=== PATIENT | female | born 1985 | race Caucasian/White ===

== ENCOUNTER → 2019-01-11 09:33 | Outpatient (CLI) | payer BC ==
[2012-05-15 06:20] VITALS: BMI 18.7
--- NOTE | 2019-01-12 13:05 | EC ---
PATIENT:KURT UNGER DATE OF SERVICE: 01/11/19 SEX: F MEDICAL RECORD: [id number] DATE OF : [birth year] [facility] AGE OF PATIENT: 33 ADMISSION DATE: 01/11/19 REFERRING PHYSICIAN: INTERPRETING PHYSICIAN: PEDRO LUIS OMALLEY MD ECHOCARDIOGRAM REPORT ECHO CHARGES 4 ECHO COMPLETE Date: 01/11/19 CLINICAL DIAGNOSIS: MVP/PAC'S/PVC'S/PALPITATIONS ECHOCARDIOGRAPHIC MEASUREMENTS (adult normal given) AC root (d.<3.7cm) 2.5 cm LV Septum d (<1.2 cm> 0.6 cm Valve Excursion 1.4 cm LV Septum (systole) 1.3 cm Left Atria (s.<4.0cm> 2.1 cm LVPW d(<1.2cm) 0.7 cm RV (d.<2.3cm) 2.1 cm LVPW (sytole) 1.2 cm LV diastole(<5.6CM) 4.0 cm MV E-F(>70mm/sec) cm LV systole 2.1 cm LVOT Diameter 1.7 cm MV exc.(>10mm) cm Est.ejection fraction (50-75%) % DOPPLER: LVIT cm/sec A 32.0 cm/sec E 87.0 cm/sec LA cm/sec RVSP 28.0 mmHg LVOT 95.0 cm/sec AOP1/2T m/s Asc. Ao 119 cm/sec RVOT 73.0 cm/sec RA cm/sec PA 92.0 cm/sec AV Gradient Peak 5.7 mmHg AV Mean 2.7 mmHg AV Area 2.2 cm MV Gradient Peak 4.2 mmHg MV Mean 0.95 mmHg MV Area cm COMMENTS: OP - HC Steel Detailer: 1 PROSPER ANDINOOE Video Tape Transferrer: 3 Dr. Sepulveda TAPE# PACS Pericardial Effusion N DATE OF SERVICE: 01/11/2019 Adequate 2-D, color-flow and spectral Doppler, and M-mode. No LVH. LV internal dimensions are normal. Wall motion is normal. EF is greater than or equal to 55%. Aortic valve is tricuspid. No evidence of stenosis by Doppler interrogation. Left atrium is normal. Mitral valve shows no prolapse. Trace MR. Right-sided chambers are grossly normal. Trace TR. TRANSINT:[id number] Voice Confirmation ID: [id number] DOCUMENT ID: [id number] ECHOCARDIOGRAM REPORT [id number] KURT UNGER,PEDRO LUIS Malone MD at 1305 CC: [id number] DICTATION DATE: 01/11/19 1516 SENIOR [employer] CONSULTANT: 01/11/19 1700 DEP CLI 01/11/19 [place] [id number] [place] [id number]
== END | disposition home or self-care (01) ==
LOC: D.HCCARDIO 09:30
PROVIDERS: ATTEND Internal Medicine Interventional Cardiology
DX: I35.1 Nonrheumatic aortic (valve) insufficiency (principal)